=== PATIENT | female | born 1965 | race Caucasian/White ===

== ENCOUNTER 2021-07-16 19:05 | Emergency (ER) | payer BC ==
[~2021-07-16] VITALS: Ht 175.2 cm; Wt 74.8 kg
== END 2021-07-16 20:04 | disposition home or self-care (01) ==
LOC: ED 19:05
DX: S92.512A Displaced fracture of proximal phalanx of left lesser toe(s), initial encounter for closed fracture (principal); W22.8XXA Striking against or struck by other objects, initial encounter; Y93.89 Activity, other specified; Y92.89 Other specified places as the place of occurrence of the external cause; Y99.8 Other external cause status

== ENCOUNTER → 2021-09-08 | Outpatient (CLI) | payer BC | LOC: RAD 10:54 | PROVIDERS: ATTEND Orthopaedic Surgery | DX: S92.512D Displaced fracture of proximal phalanx of left lesser toe(s), subsequent encounter for fracture with routine healing (principal); X58.XXXD Exposure to other specified factors, subsequent encounter ==

== ENCOUNTER 2022-10-07 15:55 | Emergency (ER) | payer MEDICARE ==
[2022-10-07] MEDS ORDERED: MECLIZINE HCL25 M2 PO (17:44)
== END 2022-10-07 17:48 | disposition home or self-care (01) ==
LOC: ED 15:55
DX: S06.0X9A Concussion with loss of consciousness of unspecified duration, initial encounter (principal); W01.190A Fall on same level from slipping, tripping and stumbling with subsequent striking against furniture, initial encounter; Y93.89 Activity, other specified; Y92.89 Other specified places as the place of occurrence of the external cause; Y99.8 Other external cause status